=== PATIENT | male | born 1990 | race Caucasian/White ===

== ENCOUNTER 2016-10-17 15:13 | Inpatient (IN) | payer OTHER ==
--- NOTE | ~2016-10-17 | PN ---
Unit #: [id number] #: [id number] Patient: JATINDER DIAZ [id number] [facility] [address] [place] [address] [id number] I MR#: [id number] NAME: JATINDER DIAZ ROOM: [facility]6 Age: 26 Sex: M Admission Date: 10/17/2016 : 1990 Attending Physician: Bryn Diane M.D. Admitting Physician: Bryn Diane M.D. Primary Care Physician: Primary Care Physician Nanci MARTINEZ PROGRESS NOTES DATE 10/21/2016 DISCUSSION Mr. Diaz is a 26-year-old white male with mood disorder and psychosis who was seen today and chart was reviewed and case was discussed with the staff. He remains quite disorganized and in elated mood with constant smiles and laughter, talking without making much sense and being completely out of touch with reality and having some significant paranoia and delusional behavior and pacing the hallways and not sleeping good at night even though Haldol has been added into his Invega Sustenna. He has not been able to show a therapeutic response. MENTAL STATUS EXAMINATION Young white male who was casually dressed with fair personal hygiene and appears to be in no acute distress or discomfort. He was awake and alert with impaired attention and concentration. His mood was elated with expansive affect. His speech is fluent and tangential. His thought processes are disorganized with some looseness of associations, flight of ideas, paranoid ideations and delusional behavior. His insight and judgement remains significantly impaired. TREATMENT PLAN 1. Will continue his current medications and treatment protocol. Will monitor his response and make further adjustments as needed. 2. Will continue to follow up. Dictated by... Juma Palmer/augusto TD: 10/22/2016 11:11 JOB #: [id number] Unit #: [id number] #: [id number] Patient: JATINDER DIAZ PROGRESS NOTES X Bryn Diane MD PROGRESS NOTE
--- NOTE | ~2016-10-17 | PN ---
Unit #: [id number] #: [id number] Patient: JATINDER DIAZ [id number] [facility] [address] [place] [address] [id number] I MR#: [id number] NAME: JATINDER DIAZ ROOM: [facility]6 Age: 26 Sex: M Admission Date: 10/17/2016 : 1990 Attending Physician: Bryn Diane M.D. Admitting Physician: Bryn Diane M.D. Primary Care Physician: Primary Care Physician Nanci HOUSTON NOTES DATE OF SERVICE: 10/18/2016 SUBJECTIVE Mr. Diaz is a 26-year-old white male who was seen today and chart was reviewed, and case was discussed with the staff. He has been anxious, withdrawn, and rather seclusive to himself. Meanwhile, he has been cooperative with treatment recommendations and has been taking the medications and tolerating them fairly well. MENTAL STATUS EXAMINATION Young white male who was casually dressed with fair personal hygiene, appears to be in no acute distress or discomfort. He was awake and alert on interaction with intact orientation. His mood was anxious with a congruent affect. He denies any suicidal or homicidal ideations. His insight and judgment remain slightly impaired. TREATMENT PLAN 1. We will continue him on his current medications and treatment protocol. We will monitor his response to the medications and make further adjustments as needed. 2. We will continue to follow up. Dictated by... Juma Palmer/bertl TD: 10/20/2016 07:07 JOB #: [id number] JUAN PROGRESS NOTES X Bryn Diane MD PROGRESS NOTE
--- NOTE | ~2016-10-17 | PN ---
Unit #: [id number] #: [id number] Patient: JATINDER DIAZ [id number] [facility] [address] [place] [address] [id number] I MR#: [id number] NAME: JATINDER DIAZ ROOM: [facility]6 Age: 26 Sex: M Admission Date: 10/17/2016 : 1990 Attending Physician: Bryn Diane M.D. Admitting Physician: Bryn Diane M.D. Primary Care Physician: Primary Care Physician Nanci MARTINEZ PROGRESS NOTES DATE October 20, 2016 DISCUSSION Mr. Diaz is a 26-year-old white male, who was seen today and chart was reviewed and the case was discussed with the staff. He has been anxious, withdrawn, and in acute psychotic and bizarre behavior and Haldol has been added after he has not shown a therapeutic response to long-acting injectable antipsychotic in the form of Invega Sustenna. MENTAL STATUS EXAMINATION Young white male, who was casually dressed with fair personal hygiene and appears to be in no acute distress or discomfort. He was awake and alert on interaction with intact orientation. His mood is anxious with a congruent affect. His speech is slow and goal-directed. He denies any suicidal or homicidal ideations. His insight and judgment remain slightly impaired. TREATMENT PLAN 1. We will continue him on his current medications and treatment protocol, and will monitor his response to the medications, and make further adjustments as needed. 2. We will continue to followup. Dictated by... Juma Palmer/luna TD: 10/21/2016 11:55 JOB #: [id number] Unit #: [id number] #: [id number] Patient: JATINDER DIAZ PROGRESS NOTES X Bryn Diane MD PROGRESS NOTE
--- NOTE | ~2016-10-17 | PN ---
Unit #: [id number] #: [id number] Patient: JATINDER CORTEZ [id number] [facility] [address] [place] [address] [id number] I MR#: [id number] NAME: JATINDER CORTEZ ROOM: [facility]6 Age: 26 Sex: M Admission Date: 10/17/2016 : 1990 Attending Physician: Bryn Diane M.D. Admitting Physician: Bryn Diane M.D. Primary Care Physician: Primary Care Physician Nanci HOUSTON NOTES DATE OF SERVICE 10/19/2016 DISCUSSION Mr. Cortez is a 26-year-old white male with mood disorder and substance abuse who was seen today. Chart was reviewed and case was discussed with staff. He remains acutely psychotic with bizarre behavior and elated mood as he has been laughing inappropriately and has been talking nonsensical and moving from one subject to another, rocking back and forth on his chair, and appears to have poor personal hygiene, and is unable to carry on any meaningful conversation. Appears to be completely out of touch with reality and does not appear to be functioning very well. His medications were adjusted just yesterday, and she has not yet been able to show any therapeutic response. MENTAL STATUS EXAMINATION Young white male who is casually dressed with marginal personal hygiene and appears to be in no acute distress or discomfort. The patient was awake and alert with intact orientation. His mood is elated with expansive affect. His speech is fluent and tangential. His thought processes were disorganized with some looseness of associations and flight of ideas and delusional behavior. His insight and judgment remain significantly impaired. TREATMENT PLAN 1. We will continue him on his current medications and treatment protocol. We will monitor his response to the medications and make further adjustments as needed. 2. We will continue to follow up. Dictated by... Bryn Diane M.D. IAA/bzg TD: 10/20/2016 10:25 JOB #: [id number] Unit #: [id number] #: [id number] Patient: JATINDER CORTEZ PROGRESS NOTES X Bryn Diane MD PROGRESS NOTE
--- NOTE | ~2016-10-17 | PN ---
Unit #: [id number] #: [id number] Patient: JATINDER DIAZ [id number] [facility] [address] [place] [address] [id number] I MR#: [id number] NAME: JATINDER DIAZ ROOM: [facility]6 Age: 26 Sex: M Admission Date: 10/17/2016 : 1990 Attending Physician: Bryn Diane M.D. Admitting Physician: Bryn Diane M.D. Primary Care Physician: Primary Care Physician Nanci HOUSTON NOTES DATE OF SERVICE: 10/22/2016 SUBJECTIVE Mr. Diaz is a 26-year-old white male with mood disorder and psychosis, who was seen today and chart was reviewed and the case was discussed with the staff. He has been anxious, withdrawn, and rather seclusive to himself. Meanwhile, he has been cooperative with the treatment recommendations and has been taking the medications and tolerating them fairly well with no reported side effects. MENTAL STATUS EXAMINATION Young white male, who was casually dressed with fair personal hygiene, appears to be in no acute distress or discomfort. He was awake and alert with impaired attention and concentration. His mood was anxious with a congruent affect. His speech was slow and tangential. His thought processes were disorganized with some looseness of associations and flight of ideas and paranoid ideations and delusional behavior. His insight and judgment remain significantly impaired. TREATMENT PLAN 1. We will continue him on his current treatment protocol. We will monitor his response to the medications and make further adjustments as needed. 2. We will continue to follow up. Dictated by... Juma Palmer/gamal TD: 10/22/2016 13:02 JOB #: [id number] Unit #: [id number] #: [id number] Patient: JATINDER DIAZ PROGRESS NOTES X Bryn Diane MD PROGRESS NOTE
--- NOTE | ~2016-10-17 | PN ---
Unit #: [id number] #: [id number] Patient: JATINDER DIAZ [id number] [facility] [address] [place] [address] [id number] I MR#: [id number] NAME: JATINDER DIAZ ROOM: [facility]6 Age: 26 Sex: M Admission Date: 10/17/2016 : 1990 Attending Physician: Bryn Diane M.D. Admitting Physician: Bryn Diane M.D. Primary Care Physician: Primary Care Physician Nanci HOUSTON NOTES DATE October 24, 2016 DISCUSSION Mr. Diaz is a 26-year-old white male, who was seen today and chart was reviewed and the case was discussed with the staff. He remains anxious, withdrawn, disorganized, and is pleasantly psychotic though he has not shown any agitation or aggression. He has been taking the medications and tolerating them fairly well. MENTAL STATUS EXAMINATION Young white male, who was casually dressed with fair personal hygiene and appears to be in no acute distress or discomfort. He was awake and alert with impaired attention and concentration. His mood is anxious with a congruent affect. His speech is slow and tangential. His thought processes are disorganized with some looseness of associations and flight of ideas. His insight and judgment remain significantly impaired. TREATMENT PLAN 1. We will continue him on his current medications and treatment protocol, and will monitor his response to the medications, and make further adjustments as needed. 2. We will continue to followup. Dictated by... Juma Palmer/luna TD: 10/25/2016 06:12 JOB #: [id number] Unit #: [id number] #: [id number] Patient: JATINDER DIAZ JUAN PROGRESS NOTES X Bryn Diane MD PROGRESS NOTE
--- NOTE | ~2016-10-17 | PN ---
Unit #: [id number] #: [id number] Patient: JATINDER DIAZ [id number] [facility] [address] [place] [address] [id number] I MR#: [id number] NAME: JATINDER DIAZ ROOM: [facility]6 Age: 26 Sex: M Admission Date: 10/17/2016 : 1990 Attending Physician: Bryn Diane M.D. Admitting Physician: Bryn Diane M.D. Primary Care Physician: Primary Care Physician Nanci HOUSTON NOTES DATE OF SERVICE: 10/23/2016 SUBJECTIVE Mr. Diaz is a 26-year-old white male, who was seen today and chart was reviewed, and case was discussed with the staff. He has been anxious, withdrawn, and rather seclusive to himself. Meanwhile, he has been cooperative with the treatment recommendations and has been taking the medications and tolerating them fairly well with no reported side effects. MENTAL STATUS EXAMINATION Young white male, who was casually dressed with fair personal hygiene, appears to be in no acute distress or discomfort. He was awake and alert with impaired attention and concentration. His mood was anxious with a congruent affect. His speech was slow and restricted in content. His thought process was disorganized with some looseness of associations and flight of ideas. His insight and judgment remain significantly impaired. TREATMENT PLAN 1. We will continue him on his current medications and treatment protocol. We will monitor his response to the medications and make further adjustments as needed. 2. We will continue to follow up. Dictated by... Juma Palmer/gamal TD: 10/24/2016 07:04 JOB #: [id number] JUAN HOUSTON NOTES X Bryn Diane MD PROGRESS NOTE
--- NOTE | ~2016-10-17 | DS ---
Unit #: [id number] #: [id number] [facility] [id number] [facility] [address] [place] [address] [id number] I MR#: [id number] NAME: JATINDER CORTEZ ROOM: [facility] Age: 26 Sex: M Admission Date: 10/17/2016 : 1990 Discharge Date: 10/25/2016 Attending Physician: Bryn Diane M.D. Primary Care Physician: Primary Care Physician No DISCHARGE SUMMARY IDENTIFYING DATA Mr. Cortez is a 26-year-old single white male, who is a resident of [place], [place], and is known to us from previous encounter. DISCHARGE DIAGNOSES Psychiatric: Schizoaffective disorder, bipolar type, most recent episode depressed, recurrent, moderate, with psychosis. Medical: None. Stressors: Moderate psychosocial stressors. HISTORY OF PRESENT ILLNESS Please see initial psychiatric evaluation for details. PAST PSYCHIATRIC HISTORY Please see initial psychiatric evaluation for details. PAST MEDICAL HISTORY Please see initial psychiatric evaluation for details. HOSPITAL COURSE The patient was admitted to the adult psychiatric unit at [facility] and was oriented to the hospital environment. Routine p.r.n. medications were initiated, and he was started back on his home medication and he was on Invega Sustenna; however, still was seen to be exhibiting acute psychotic, very bizarre behavior, and kelli like symptoms and was out of touch with reality and as such, Haldol was added and lithium was maintained, and he was closely monitored. He was taking the medications regularly and was able to show a slow, but therapeutic response to the medication. Followed by which, it was decided that he will be discharged home and will continue treatment on an outpatient basis. DISCHARGE MEDICATIONS Haldol 5 mg b.i.d. for psychosis, and lithium 600 mg b.i.d. for bipolar. DISCHARGE CONDITION Stable. PROGNOSIS Fair. Dictated by... Bryn Diane M.D. Unit #: [id number] #: [id number] Patient: JATINDER CORTEZ IAA/modl TD: 10/25/2016 07:20 JOB #: [id number] DISCHARGE SUMMARY X Bryn Diane MD DISCHARGE SUMMARY
--- NOTE | ~2016-10-17 | HP ---
Unit #: [id number] #: [id number] Patient: JATINDER DIAZ [id number] [facility] [address] [place] [address] [id number] I MR#: [id number] NAME: JATINDER DIAZ ROOM: [facility]6 Age: 26 Sex: M Admission Date: 10/17/2016 : 1990 Attending Physician: Bryn Diane M.D. Admitting Physician: Bryn Diane M.D. Primary Care Physician: Primary Care Physician No HISTORY AND PHYSICAL HISTORY OF PRESENT ILLNESS Jatinder is a 26 year old admitted to [address] [place] [address] with psychotic behavior. He is a poor historian so his history is taken from his chart. PAST MEDICAL HISTORY Nothing significant. PAST SURGICAL HISTORY Nothing reported. ALLERGIES No known drug allergies. SOCIAL HISTORY He smokes. Denies alcohol and illicit drug use. FAMILY HISTORY Medically noncontributory. REVIEW OF SYSTEMS He answers no questions appropriately. CURRENT MEDICATIONS No orders received at the time of this dictation. PHYSICAL EXAMINATION GENERAL: Alert, well-nourished, in no apparent distress. VITAL SIGNS: Blood pressure 128/86, heart rate 80, respirations 16, temperature 98.6. WEIGHT: 183 pounds. HEIGHT: 5'11". SKIN: Warm and dry without rash or lesion. HEENT: Normocephalic. TMs not viewed. Oral and nasal passages clear. Conjunctivae clear. Pupils equal, round and reactive to light and accommodation. Extraocular movements intact. NECK: Supple without lymphadenopathy or thyromegaly. HEART: Regular rate and rhythm without murmur. LUNGS: Clear. ABDOMEN: Soft, nontender. : Not done. EXTREMITIES: No evidence of cyanosis, clubbing or edema. Moves all extremities without focal deficit. Unit #: [id number] #: [id number] Patient: JATINDER DIAZ NEUROLOGICAL: Grossly within normal limits. Cranial Nerves: II: Visual meyer are intact. III, IV AND : Extraocular movements are intact. Pupils are equal, round and reactive to light. V: Facial sensation is grossly normal. VII: Facial movements and expression are normal. VIII: Auditory acuity grossly intact. IX, X: Uvula is midline. Phonation is normal. XI: Patient shrugs shoulders and turns head normally. XII: Tongue protrudes in the midline. Sensory and Motor Function: Sensory and motor sensation is grossly normal. Motor: moves all extremities well. Coordination: Gait is normal. Deep Tendon Reflexes: Intact. IMPRESSION Psychiatric admission RECOMMENDATIONS PSYCHIATRIC: Per psychiatrist. MEDICAL: I see no contraindications to participating in facility's activities. MEDICAL PROGNOSIS Good. MEDICAL CONDITION Stable. Dictated by... Danyell Cortez P.A.-C. for Juma Sandoval/nico TD: 10/18/2016 01:16 JOB #: [id number] HISTORY AND PHYSICAL X Danyell Cortez HISTORY AND PHYSICAL
--- NOTE | ~2016-10-17 | PA ---
Unit #: [id number] #: [id number] Patient: JATINDER DIAZ [id number] [facility] [address] [place] [address] [id number] I MR#: [id number] NAME: JATINDER DIAZ ROOM: [facility]6 Age: 26 Sex: M Admission Date: 10/17/2016 : 1990 Date of Assessment: 10/17/2016 Attending Physician: Bryn Diane M.D. Admitting Physician: Bryn Diane M.D. Primary Care Physician: Primary Care Physician No PSYCHIATRIC ASSESSMENT DATE OF SERVICE 10/17/2016. IDENTIFYING DATA Mr. Cantrell is a 26-year-old single white male, who is a resident of [place], [place], and is known to us from previous encounter, and was recently discharged from our care and was brought back to the hospital by his mother. CHIEF COMPLAINT "He is back to his bad behaviors." HISTORY OF PRESENT ILLNESS Mr. Cantrell is a 26-year-old white male, who is known with chronic mental illness, who was brought back to the hospital by his family stating that he is [facility] to [facility] to learn more about his behaviors and prompted patient to discuss more on why his getting assessed and the patient rambled about things that made no sense and rambled about his spirituality, making friends and mindfulness and was disorganized and blunted affect, and was delusional and reported things that made no sense and admitted to hearing voices that are his thoughts and reports that he has been hearing his thoughts since 2011 and reports that having 3 thought through voices itself and having good things and the patient reported that his impulsive nature makes him hear those thoughts and voices. Reports that the patient's behavior has never changed and mother reports that the patient was put on injection with a higher dosage and the patient continued to have disorganized behavior and psychosis and reports that the patient took himself off his psych medication and grandmother reports the patient has consistently gotten worse and mother reports that the patient gradually got worse in August and the patient was brought and the mother reports the patient continues to talk incorrectly and had a fast pace and talks over people and ramble without making much sense and was seen to be acutely psychotic and as such, recommendation for inpatient level of care was made. SUBSTANCE ABUSE HISTORY The patient denies any alcohol or drug abuse. PAST PSYCHIATRIC HISTORY The patient has not had any prior outpatient, has had history of multiple inpatient psychiatric hospitalization and has been diagnosed and treated for schizoaffective disorder and currently he is not active in treatment program, is not seeing a psychiatrist, not taking any psychotropic Unit #: [id number] #: [id number] Patient: JATINDER DIAZ medications. PAST MEDICAL HISTORY No acute or chronic medical illnesses. ALLERGIES No known medication allergies. PERSONAL AND SOCIAL HISTORY A 26-year-old white male, who reports that he is single, unemployed, and lives at home with his family and has fairly decent social support system. MENTAL STATUS EXAMINATION Young white male who was casually dressed with fair personal hygiene, appears to be in no acute distress or discomfort. He was awake and alert on interaction with intact orientation to time, place, and person. His mood was anxious and depressed with a congruent affect. His speech was slow and restricted in content. His thought processes were disorganized with some looseness of associations and paranoid ideations and delusional behavior. His insight and judgment remain significantly impaired. DIAGNOSTIC IMPRESSION Psychiatric: Schizoaffective disorder, bipolar type, most recent episode depressed, recurrent, moderate, with psychosis. Medical: None. Stressors: Moderate psychosocial stressors. TREATMENT PLAN 1. The patient has presented with history of chronic mental illness and has been decompensating and will need inpatient hospitalization for safety and stabilization. We will start him back on his home medications. We will adjust the medications and monitor response. 2. Supportive therapy was provided to the patient. 3. Safe, structured, and nourishing environment will be provided. ESTIMATED LENGTH OF STAY 5 to 7 days. ABILITY TO HELP SELF Limited. WILLINGNESS TO HELP SELF The patient appears to be willing to help self. STRENGTHS 1. Communicative. 2. Cooperative. PROBLEMS 1. Chronic dysphoric symptoms. 2. Poor social support system. DISCHARGE CRITERIA This will be contingent upon the patient's ability to show resolution of his depression and psychosis and his ability to stay safe to himself, particularly after discharge from the hospital. Dictated by... Unit #: [id number] #: [id number] Patient: JATINDER DIAZ Juma Palmer/gamal TD: 10/19/2016 00:43 JOB #: [id number] PSYCHIATRIC ASSESSMENT X Bryn Diane MD PSYCHIATRIC ASSESSMENT
--- NOTE | ~2016-10-17 | TN ---
Unit #: [id number] #: [id number] Patient: JATINDER CORTEZ [id number] [facility] [address] [place] [address] [id number] MR#: [id number] NAME: JATINDER CORTEZ ROOM: [facility] Age: 26 Sex: M Admission Date: 10/17/2016 : 1990 Discharge Date: 10/25/2016 Attending Physician: Bryn Diane M.D. Primary Care Physician: Primary Care Physician No LOC TRANSFER NOTE DATE OF SERVICE: 10/31/2016 IDENTIFYING DATA Mr. Cortez is a 26-year-old single white male with history of chronic paranoid schizophrenia, who was stepped down to the outpatient treatment program from the adult inpatient psychiatric unit, where he was hospitalized under my care from 10/17/2016 to 10/25/2016 and had a rather complicated course with acute psychosis, agitation, and aggression. However, he had a history of poor compliance with medication, and as such, he was started on long-acting injectable antipsychotic in the form of Invega Sustenna, and did receive both the loading doses while on the unit; followed by which, he stepped down to the outpatient treatment program. When seen by me today, the patient appears to be doing much better and was calmer, though still was quite disorganized; however, he was not seen to be exhibiting any agitation or aggression and no acute psychosis was noted. SUBSTANCE ABUSE HISTORY The patient denies any history of alcohol or drugs. PAST PSYCHIATRIC HISTORY The patient has had history of inpatient psychiatric hospitalization and has been diagnosed and treated for chronic paranoid schizophrenia and has a trial of several different psychotropic medication, though he has history of poor compliance with medication and outpatient followup. PAST MEDICAL HISTORY No acute or chronic medical illnesses. PERSONAL AND SOCIAL HISTORY A 26-year-old white male, who reports that he is single, unemployed, and lives at home with his family and has fairly decent social support system. MENTAL STATUS EXAMINATION Young white male who was casually dressed with fair personal hygiene, appears to be in no acute distress or discomfort. He was awake and alert on interaction with intact orientation to time, place, and person. His mood was anxious and depressed with a congruent affect. His speech was slow and goal directed. His thought processes were disorganized with some looseness of associations and flight of ideas. His insight and judgment remain significantly impaired. DIAGNOSTIC IMPRESSION Psychiatric: Chronic paranoid schizophrenia. Medical: None. Stressors: Unit #: [id number] #: [id number] Patient: JATINDER CORTEZ Moderate psychosocial stressors. TREATMENT PLAN 1. The patient has presented with history of mood disorder and we will recommend enrolling him into the outpatient treatment program and maintaining him on his current medications. We will encourage him to participate in therapy groups. 2. Supportive therapy was provided to the patient. ESTIMATED LENGTH OF STAY 14 to 21 days. ABILITY TO HELP SELF Limited. WILLINGNESS TO HELP SELF The patient appears to be willing to help self. STRENGTHS 1. Communicative. 2. Cooperative. PROBLEMS 1. Chronic dysphoric symptoms. 2. Poor social support system. DISCHARGE CRITERIA This will be contingent upon the patient's ability to show resolution of his depression and psychosis and his ability to stay safe to himself, particularly after discharge from the hospital. Dictated by... Juma Palmer/gamal TD: 11/02/2016 03:53 JOB #: [id number] LOC TRANSFER NOTE Page 1 of 1 X Bryn Diane MD X LOC TRANSFER NOTE
[2016-10-18 09:41] LABS: BASOPHIL% 0.5 % (0-2.5); EOSINOPHIL# 0.4 X10e3 (0-0.7); EOSINOPHIL% 5.3 % (0.0-7.0); HEMATOCRIT 46.5 % (38.0-50.0); HEMOGLOBIN 15.3 gm/dL (13.0-16.0); LYMPHOCYTE% 29.7 % (17.0-45.0); MEAN CELL VOLUME 90.6 FL (83-96); MEAN CORPUSCULAR HEMOGLOBIN 29.9 PG (28-34); MEAN CORPUSCULAR HGB CONC 32.9 g/dL (30-36); MEAN PLATELET VOLUME 8.4 FL (6.5-11.5); MONOCYTE# 0.5 X10e3 (0-1.0); MONOCYTE% 7.7 % (3.0-12.0); NEUTROPHIL# 3.9 X10e3 (1.5-7.1); NEUTROPHIL% 56.8 % (40-75); PLATELET COUNT 206 X10e3 (140-420); RED BLOOD COUNT 5.13 X10e (3.90-5.60); WHITE BLOOD COUNT 6.9 X10e3 (4.0-10.5)
[2016-10-18 09:43] LABS: DIFF IND NO
[2016-10-18 10:04] LABS: THYROID STIMULATING HORMONE 3.86 uIU/ml (0.34-5.60)
[2016-10-18 10:08] LABS: ALBUMIN SERUM 4.3 g/dL (3.5-5.0); ALKALINE PHOSPHATASE 45 U/L (32-92); ALT (SGPT) 16 U/L (10-40); AST (SGOT) 15 U/L (10-42); BILIRUBIN,TOTAL 0.6 mg/dL (0.2-2.0); BLOOD UREA NITROGEN 15 mg/dL (9-23); BUN/CREATININE RATIO 13.63; CALCIUM SERUM 9.3 mg/dL (8.4-10.2); CARBON DIOXIDE 28 mmol/L (22-31); CHLORIDE 107 mmol/L (100-111); CREATININE SERUM 1.1 mg/dL (0.6-1.4); GLOM FILT RATE Estimated ABOVE60 mL/min (>60); GLUCOSE FASTING 89 mg/dL (70-110); POTASSIUM 4.6 mmol/L (3.5-5.1); PROTEIN TOTAL SERUM 6.2 g/dL (6.0-8.3); SODIUM 142 mmol/L (135-145)
[2016-10-18 10:09] LABS: FREE THYROXIN (T4) 0.77 ng/dL (0.58-1.64)
== END 2016-10-25 13:00 | disposition home or self-care (01) | DRG 885 ==
LOC: POF 15:13 → P1S 17:45 → POF 10-24 14:15 → P1S 10-24 14:19
PROVIDERS: Psychiatry & Neurology Psychiatry
DX: F25.0 Schizoaffective disorder, bipolar type (principal); F31.32 Bipolar disorder, current episode depressed, moderate; F17.200 Nicotine dependence, unspecified, uncomplicated
CPT/HCPCS: 80053; 84439; 84443; 85025